=== PATIENT | female | born 1975 | race Hispanic/Latino ===

== ENCOUNTER 2021-03-09 08:01 | Observation (INO) | payer MEDICARE ==
[~2021-03-09] VITALS: Ht 152.4 cm; Wt 86.2 kg
[2021-03-09] VITALS (22 sets, daily range): BP systolic 134–181; BP diastolic 64–82
[2021-03-09 08:53] LABS: BASOPHILS % (AUTO) 1.3 % (0.0-5.0); EOSINOPHILS % (AUTO) 4.3 % (0.0-8.0); LYMPHOCYTES % (AUTO) 14.3 % (21.0-51.0); MEAN CORPUSCULAR HEMOGLOBIN 34.3 pg (27.0-33.0); MEAN CORPUSCULAR HGB CONC 32.4 g/dL (32.0-36.0); MEAN CORPUSCULAR VOLUME 105.9 fL (79-99); MONOCYTES % (AUTO) 10.3 % (3.0-13.0); NEUTROPHILS % (AUTO) 69.5 % (40.0-77.0); PLATELET COUNT (AUTO) 90 K/uL (130-400); RED BLOOD CELL COUNT(AUTO) 2.36 MIL/uL (4.00-5.50); RED CELL DISTRIBUTION WIDTH 14.5 % (11.0-15.5)
[2021-03-09 09:12] LABS: ALBUMIN 3.5 g/dL (3.5-5.0); BILIRUBIN,TOTAL 0.6 mg/dL (0.2-1.0); POTASSIUM 5.7 mmol/L (3.5-5.1); TOTAL PROTEIN, SERUM 8.5 g/dL (6.0-8.3)
[2021-03-09 09:18] LABS: CREATININE 19.3 mg/dL (0.5-1.5)
[2021-03-09 09:23] LABS: INR 1.1 (0.85-1.15); PROTHROMBIN TIME 11.9 SEC (9.6-11.6)
[2021-03-09 09:24] LABS: PARTIAL THROMBOPLASTIN TIME 23.4 SEC (26.3-35.5)
[2021-03-09] MEDS: DiphenhydrAMINE HCL 50 MG/ML VIAL ONE ×2 (09:42→09:50)
[2021-03-09] MEDS ORDERED: DiphenhydrAMINE HCL 50 MG/ML VIAL IM SCH (10:00)
[2021-03-09] MEDS ORDERED: ACETAMINOPHEN 325 MG TAB PO PRN (10:30)
[2021-03-09] MEDS ORDERED: GLUCAGON 1MG KIT 1 MG ML IM PRN (10:30)
[2021-03-09] MEDS ORDERED: DEXTROSE 50%-WATER 50 ML DISP.SYRIN IV PRN (10:30)
[2021-03-09] MEDS ORDERED: ONDANSETRON 4MG INJ IVP PRN (10:30)
[2021-03-09] MEDS ORDERED: CLONIDINE HCL 0.1 MG TABLET PO PRN (10:30)
[2021-03-09] MEDS ORDERED: ACETAMINOPHEN 650 MG SUPPOSITORY RC PRN (10:30)
[2021-03-09] MEDS ORDERED: LACTULOSE 20 GM/30 ML UDCUP PO PRN (10:30)
[2021-03-09] MEDS ORDERED: HYDRALAZINE 20MG/ML VIAL IV PRN (10:30)
[2021-03-09] MEDS ORDERED: ENOXAPARIN SODIUM 30 MG/0.3 ML SQ SCH (10:33)
[2021-03-09] MEDS ORDERED: SERT-438 PO (10:36)
[2021-03-09] MEDS ORDERED: LORA10TA7 PO (10:37)
[2021-03-09] MEDS ORDERED: HYDR-4154 PO (10:38)
[2021-03-09] MEDS ORDERED: AMLO-257 PO (10:43)
[2021-03-09] MEDS: INSULIN HUMULIN R 100 UNIT/ML 3ML SQ SCH ×3 (11:30→21:00)
[2021-03-09 11:41] LABS: TROPONIN I 0.15 ng/mL (0.00-0.06)
[2021-03-09] MEDS: METOCLOPRAMIDE 5 MG TABLET PO SCH ×3 (12:22→22:18)
[2021-03-09 13:39] LABS: ABG HCO3 15.6 mmol/L (21.0-28.0); ABG OXYGEN SATURATION 97.1 % (95.0-99.0); ABG PCO2 31 mmHg (32-45)
[2021-03-09] MEDS ORDERED: HEPARIN 5,000 UNIT VIAL IV ONE (17:00)
[2021-03-09 17:58] LABS: TROPONIN I 0.19 ng/mL (0.00-0.06)
[2021-03-09] MEDS ORDERED: HYDRALAZINE 25MG TABLET PO SCH (21:00)
[2021-03-10] MEDS ORDERED: LORATADINE 10 MG TABLET PO SCH (09:00)
[2021-03-10] MEDS ORDERED: SERTRALINE HCL 50 MG TABLET PO SCH (09:00)
[2021-03-10] MEDS ORDERED: AMLODIPINE 5 MG TAB PO SCH (09:00)
[2021-03-11 07:17] LABS: HEPATITIS Bs ANTIGEN SCREEN P Negative (Negative)
== END 2021-03-09 22:55 | disposition left against medical advice (07) ==
LOC: EDH 08:01 → EDHIP 10:25
PROVIDERS: ADMIT Internal Medicine Critical Care Medicine; ATTEND Internal Medicine Critical Care Medicine
DX: E87.70 Fluid overload, unspecified (principal); Z20.822 Contact with and (suspected) exposure to COVID-19; R18.8 Other ascites; E87.5 Hyperkalemia; I12.0 Hypertensive chronic kidney disease with stage 5 chronic kidney disease or end stage renal disease; E11.22 Type 2 diabetes mellitus with diabetic chronic kidney disease; N18.6 End stage renal disease; D69.6 Thrombocytopenia, unspecified; E46 Unspecified protein-calorie malnutrition; R53.81 Other malaise; R19.7 Diarrhea, unspecified; J90 Pleural effusion, not elsewhere classified; E87.2 Acidosis; A05.9 Bacterial foodborne intoxication, unspecified; D64.9 Anemia, unspecified; R64 Cachexia; Z99.2 Dependence on renal dialysis; Z79.2 Long term (current) use of antibiotics; Z68.37 Body mass index [BMI] 37.0-37.9, adult
CPT/HCPCS: 36415; 36600; 49083; 71045; 80053; 82550; 82803; 82948; 83874; 84484; 85025; 85610; 85730; 86704; 86706; 87040; 87340; 87635; 87804; 90935; 96372; C1729; G0378; J1200; J1644; J1650

== ENCOUNTER 2021-09-02 12:29 | Observation (INO) | payer MEDICARE ==
[2021-09-02] VITALS (14 sets, daily range): BP systolic 121–171; BP diastolic 62–88
[~2021-09-02] VITALS: Ht 170.2 cm; Wt 73.1 kg
[~2021-09-02 12:29] MED LIST: AMLO-257 PO; HYDR-4154 PO; LORA10TA7 PO; SERT-438 PO
[2021-09-02] MEDS ORDERED: ACETAMINOPHEN WITH CODEINE 1 TAB TAB PO ONE (16:30)
[2021-09-02 16:35] LABS: BASOPHILS % (AUTO) 1.3 % (0.0-5.0); EOSINOPHILS % (AUTO) 3.8 % (0.0-8.0); HEMATOCRIT 29.7 % (36-48); LYMPHOCYTES % (AUTO) 14.6 % (21.0-51.0); MEAN CORPUSCULAR HEMOGLOBIN 33.4 pg (27.0-33.0); MEAN CORPUSCULAR HGB CONC 33.7 g/dL (32.0-36.0); MEAN CORPUSCULAR VOLUME 99.3 fL (79-99); MONOCYTES % (AUTO) 9.1 % (3.0-13.0); PLATELET COUNT (AUTO) 89 K/uL (130-400); RED BLOOD CELL COUNT(AUTO) 2.99 MIL/uL (4.00-5.50); RED CELL DISTRIBUTION WIDTH 14.4 % (11.0-15.5); WHITE BLOOD COUNT (AUTO) 4.5 K/uL (4.8-10.8)
[2021-09-02 16:41] LABS: INR 1.12 (0.85-1.15); PROTHROMBIN TIME 12.1 SEC (9.6-11.6)
[2021-09-02 16:42] LABS: PARTIAL THROMBOPLASTIN TIME 32.2 SEC (26.3-35.5)
[2021-09-02 16:48] LABS: ALBUMIN 3.6 g/dL (3.5-5.0); BILIRUBIN,TOTAL 0.5 mg/dL (0.2-1.0); CRP QUANTITATIVE 2.3 mg/L (0.00-9.0); POTASSIUM 5.5 mmol/L (3.5-5.1); TOTAL PROTEIN, SERUM 8.9 g/dL (6.0-8.3)
[2021-09-02 17:04] LABS: CREATININE 17.8 mg/dL (0.5-1.5)
[2021-09-02] MEDS ORDERED: HYDROXYZINE 25 MG TABLET PO ONE (17:30)
[2021-09-02] MEDS ORDERED: CALCIUM GLUC 1GM 1 GM in 0.9%NACL 100ML 100 ML IV ONE (17:30)
[2021-09-02] MEDS ORDERED: INSULIN HUMULIN R 100 UNIT/ML 3ML IV ONE (17:30)
[2021-09-02] MEDS ORDERED: DEXTROSE 50%-WATER 25 GM/50 ML VIAL IV ONE (17:30)
[2021-09-02] MEDS ORDERED: SODIUM BICARB 8.4% 50ML SYRINGE IVP ONE (17:30)
[2021-09-02] MEDS ORDERED: SODIUM BICARB 50MEQ 50ML VIAL 50 ML ONE (17:53)
[2021-09-02] MEDS ORDERED: ALBUTEROL 0.083% 2.5 MG/3 ML INH IH SCH (18:00)
[2021-09-02] MEDS ORDERED: HYDRALAZINE 20MG/ML VIAL IV ONE (18:00)
[2021-09-02] MEDS ORDERED: DEXTROSE 50%-WATER 50 ML DISP.SYRIN IV ONE (18:06)
[2021-09-02] MEDS ORDERED: NITROGLYCERIN 1GM OINT 1 INCH/1GM TD ONE (18:10)
[2021-09-02] MEDS: KAYEXALATE 15GM/60ML PO NR (18:17)
[2021-09-02 20:11] LABS: HEMOGLOBIN A1C 4.4 % (4.0-6.0)
[2021-09-02 20:31] LABS: THYROID STIMULATING HORMONE 7.38 uIU/mL (0.36-3.74)
[2021-09-02 20:32] LABS: CRP QUANTITATIVE < 2.00 mg/L (0.00-9.0)
[2021-09-02] MEDS: HYDRALAZINE 25MG TABLET PO SCH (21:00)
[2021-09-02 22:12] LABS: INFLUENZA TYPE A NEGATIVE FOR TYPE A (NEG); INFLUENZA TYPE B NEGATIVE FOR TYPE B (NEG)
[2021-09-02] MEDS ORDERED: HEPARIN 5,000 UNIT VIAL ONE (22:21)
[2021-09-03] VITALS (13 sets, daily range): BP systolic 141–184; BP diastolic 54–78
[2021-09-03] MEDS: HYDRALAZINE 20MG/ML VIAL IV PRN ×2 (00:12→17:17)
[2021-09-03] MEDS ORDERED: DIPHENHYDRAMINE HCL 25 MG CAPSULE PO ONE ×2 (01:30→21:00)
[2021-09-03 05:44] LABS: BASOPHILS % (AUTO) 1.1 % (0.0-5.0); EOSINOPHILS % (AUTO) 3.1 % (0.0-8.0); HEMATOCRIT 27.6 % (36-48); LYMPHOCYTES % (AUTO) 10.2 % (21.0-51.0); MEAN CORPUSCULAR HEMOGLOBIN 32.7 pg (27.0-33.0); MEAN CORPUSCULAR HGB CONC 33.7 g/dL (32.0-36.0); MEAN CORPUSCULAR VOLUME 97.2 fL (79-99); MONOCYTES % (AUTO) 9.9 % (3.0-13.0); NEUTROPHILS % (AUTO) 75.4 % (40.0-77.0); PLATELET COUNT (AUTO) 76 K/uL (130-400); RED BLOOD CELL COUNT(AUTO) 2.84 MIL/uL (4.00-5.50); RED CELL DISTRIBUTION WIDTH 14.3 % (11.0-15.5); WHITE BLOOD COUNT (AUTO) 3.5 K/uL (4.8-10.8)
[2021-09-03 06:20] LABS: ALBUMIN 3.2 g/dL (3.5-5.0); BILIRUBIN,TOTAL 0.5 mg/dL (0.2-1.0); MAGNESIUM 2.3 mg/dL (1.80-2.40); TOTAL PROTEIN, SERUM 7.7 g/dL (6.0-8.3)
[2021-09-03 06:23] LABS: CREATININE 12.9 mg/dL (0.5-1.5)
[2021-09-03 06:36] LABS: PHOSPHORUS 10.5 mg/dL (2.5-4.9)
[2021-09-03] MEDS ORDERED: EPOETIN ALFA-EPBX (ESRD) 10,000 UNIT/ML VIAL SQ SCH (09:00)
[2021-09-03] MEDS: AMLODIPINE 5 MG TAB PO SCH (09:20)
[2021-09-03] MEDS: CALCIUM AC 667MG CAP PO SCH ×3 (09:20→17:17)
[2021-09-03] MEDS: Vitamin B Complex/Vit C/Folic Acid PO SCH (09:20)
[2021-09-03] MEDS: HYDRALAZINE 25MG TABLET PO SCH ×2 (09:20→21:53)
[2021-09-03] MEDS ORDERED: ONDANSETRON 4MG INJ IVP PRN (09:30)
[2021-09-03] MEDS ORDERED: LIDOCAINE HCL 1% 20 ML VIAL ONE (12:56)
[2021-09-03] MEDS ORDERED: ALBUMIN (HUMAN) 25% 200 ML IV ONE (12:56)
[2021-09-03] MEDS: HEPARIN 5,000 UNIT VIAL IV NR (15:00)
[2021-09-03] MEDS: KAYEXALATE 15GM/60ML PO NR (17:34)
[2021-09-03 18:26] LABS: APPEARANCE BODY FLUID CLEAR (CLEAR); COLOR,BODY FLUID YELLOW (LT YELLOW); SPECIMENTYPE,BODY FLUID ASCITES; TOTAL VOLUME,BODY FLUID 12000 mL
[2021-09-03 18:30] LABS: BODY FLUID RBC 133 /cu. mm.; BODY FLUID WBC 104 /cu. mm.
[2021-09-03] MEDS ORDERED: GABA-529 PO (18:42)
[2021-09-03] MEDS ORDERED: FERR210T PO (18:42)
[2021-09-03] MEDS ORDERED: HYDR-3421 PO (18:42)
[2021-09-03 22:09] LABS: BF LYMPHOCYTE 27 %; BF MESOTHELIAL 55 %
[2021-09-04] VITALS (20 sets, daily range): BP systolic 111–196; BP diastolic 59–90
[2021-09-04] MEDS ORDERED: HYDROCODONE/ACETAMINOPHEN 5/325 MG TAB PO ONE (03:00)
[2021-09-04] MEDS ORDERED: HYDROCODONE/ACETAMINOPHEN 5/325 MG TAB ONE (04:49)
[2021-09-04 07:10] LABS: MEAN CORPUSCULAR HGB CONC 32.8 g/dL (32.0-36.0); MEAN CORPUSCULAR VOLUME 100.7 fL (79-99); PLATELET COUNT (AUTO) 60 K/uL (130-400); RED BLOOD CELL COUNT(AUTO) 2.88 MIL/uL (4.00-5.50); RED CELL DISTRIBUTION WIDTH 14.4 % (11.0-15.5); WHITE BLOOD COUNT (AUTO) 4.3 K/uL (4.8-10.8)
[2021-09-04 07:26] LABS: ALBUMIN 3.1 g/dL (3.5-5.0); ASPARTATE AMINOTRANSFERASE 11 U/L (10-37); BILIRUBIN,TOTAL 0.4 mg/dL (0.2-1.0); CARBON DIOXIDE 23 mmol/L (21-32); CHLORIDE 99 mmol/L (101-111); GLOMERULAR FILTR. RATE CALC 4 mL/min (>60); GLUCOSE,RANDOM 99 mg/dL (70-105); PHOSPHORUS 9.1 mg/dL (2.5-4.9); SODIUM SERUM 136 mmol/L (136-145); UREA NITROGEN, BLOOD 66 mg/dL (7-18)
[2021-09-04 07:28] LABS: ALANINE AMINOTRANSFERASE < 6 U/L (12-78)
[2021-09-04 07:29] LABS: CREATININE 10.9 mg/dL (0.5-1.5)
[2021-09-04] MEDS: CALCIUM AC 667MG CAP PO SCH ×3 (08:00→19:32)
[2021-09-04 08:15] LABS: HEPATITIS Bs ANTIGEN SCREEN P Negative (Negative)
[2021-09-04] MEDS: HYDRALAZINE 25MG TABLET PO SCH ×2 (09:00→20:10)
[2021-09-04] MEDS: Vitamin B Complex/Vit C/Folic Acid PO SCH (09:00)
[2021-09-04] MEDS: AMLODIPINE 5 MG TAB PO SCH (09:00)
[2021-09-04] MEDS ORDERED: LIDOCAINE HCL-MPF 1% 2ML VIAL ONE (10:52)
[2021-09-04] MEDS: HEPARIN 5,000 UNIT VIAL IV NR (12:19)
[2021-09-04] MEDS ORDERED: DIPHENHYDRAMINE HCL 25 MG CAPSULE PO SCH ×2 (13:08→14:45)
[2021-09-04] MEDS ORDERED: ACETAMINOPHEN WITH CODEINE 1 TAB TAB PO PRN (16:00)
[2021-09-04] MEDS ORDERED: ACET1TAB25 PO ×2 (16:03→16:22)
[2021-09-04] MEDS ORDERED: DOXY100T2 PO (16:03)
== END 2021-09-04 21:00 | disposition home or self-care (01) ==
LOC: EDH 12:29 → EDHIP 18:29 → INTOOBSV 18:29 → 4DH 09-03 14:15
PROVIDERS: ADMIT Internal Medicine; ATTEND Internal Medicine
DX: J96.01 Acute respiratory failure with hypoxia (principal); Z20.822 Contact with and (suspected) exposure to COVID-19; I16.0 Hypertensive urgency; I12.0 Hypertensive chronic kidney disease with stage 5 chronic kidney disease or end stage renal disease; N18.6 End stage renal disease; D63.1 Anemia in chronic kidney disease; E87.2 Acidosis; E87.70 Fluid overload, unspecified; E87.5 Hyperkalemia; I24.9 Acute ischemic heart disease, unspecified; K74.69 Other cirrhosis of liver; L02.511 Cutaneous abscess of right hand; R77.8 Other specified abnormalities of plasma proteins; J81.1 Chronic pulmonary edema; Z99.2 Dependence on renal dialysis; Z91.19 Patient's noncompliance with other medical treatment and regimen; Z90.49 Acquired absence of other specified parts of digestive tract; Z91.15 Patient's noncompliance with renal dialysis; Z94.0 Kidney transplant status; Z98.84 Bariatric surgery status; Z79.899 Other long term (current) drug therapy; Z98.890 Other specified postprocedural states; Z98.891 History of uterine scar from previous surgery
CPT/HCPCS: 26011; 36415 ×3; 49083; 71045; 73120; 73218; 76705; 80053 ×3; 82948 ×6; 83036; 83735; 84100 ×2; 84145; 84443; 84484 ×3; 85025 ×2; 85027; 85610; 85651; 85730; 86140 ×2; 86704; 86706; 87040 ×2; 87071; 87205; 87340; 87635; 87804 ×2; 89051; 93005; 93970; 94640; 96365; 96375; 96376; 99285; C1729; C9803; G0378 ×8; J0360 ×3; J0610; J1644 ×4; J3490 ×2; J7070 ×2; P9046; Q0163 ×3; 90935

== ENCOUNTER 2021-09-12 15:50 | Emergency (ER) | payer MEDICARE ==
[~2021-09-12] VITALS: Ht 170.2 cm; Wt 93.4 kg
[~2021-09-12 15:50] MED LIST changes: +ACET1TAB25 PO; +DOXY100T2 PO; +FERR210T PO; +GABA-529 PO; +HYDR-3421 PO; -LORA10TA7 PO; -SERT-438 PO
[2021-09-12 16:29] LABS: BASOPHILS % (AUTO) 0.9 % (0.0-5.0); EOSINOPHILS % (AUTO) 3.8 % (0.0-8.0); HEMATOCRIT 29.1 % (36-48); LYMPHOCYTES % (AUTO) 12.8 % (21.0-51.0); MEAN CORPUSCULAR HGB CONC 32.6 g/dL (32.0-36.0); MONOCYTES % (AUTO) 12.5 % (3.0-13.0); NEUTROPHILS % (AUTO) 69.8 % (40.0-77.0); PLATELET COUNT (AUTO) 109 K/uL (130-400); RED BLOOD CELL COUNT(AUTO) 2.97 MIL/uL (4.00-5.50); RED CELL DISTRIBUTION WIDTH 13.8 % (11.0-15.5); WHITE BLOOD COUNT (AUTO) 4.5 K/uL (4.8-10.8)
[2021-09-12 16:52] LABS: B-TYPE NATRIURETIC PEPTIDE 1850 pg/mL (0-100)
[2021-09-12 16:58] LABS: ALBUMIN 3.1 g/dL (3.5-5.0); BILIRUBIN,TOTAL 0.5 mg/dL (0.2-1.0); POTASSIUM 5.1 mmol/L (3.5-5.1); TOTAL PROTEIN, SERUM 7.9 g/dL (6.0-8.3)
[2021-09-12 17:01] LABS: CREATININE 14.8 mg/dL (0.5-1.5)
[2021-09-12 18:23] VITALS: BP 172/73
== END 2021-09-12 18:30 | disposition home or self-care (01) ==
LOC: EDH 15:50
DX: I12.0 Hypertensive chronic kidney disease with stage 5 chronic kidney disease or end stage renal disease (principal); E11.22 Type 2 diabetes mellitus with diabetic chronic kidney disease; N18.6 End stage renal disease; Z99.2 Dependence on renal dialysis; Z90.49 Acquired absence of other specified parts of digestive tract; Z98.890 Other specified postprocedural states; Z88.1 Allergy status to other antibiotic agents; Z88.8 Allergy status to other drugs, medicaments and biological substances; Z79.899 Other long term (current) drug therapy; Z20.822 Contact with and (suspected) exposure to COVID-19
CPT/HCPCS: 36415; 71045; 72170; 80053; 83605; 83880; 84145; 84484; 85025; 87635; 93005; 99285; C9803

== ENCOUNTER 2022-08-09 11:20 | Observation (INO) | payer MEDICARE ==
[2022-08-09] VITALS (14 sets, daily range): BP systolic 140–185; BP diastolic 62–93
[~2022-08-09] VITALS: Ht 170.2 cm; Wt 80.2 kg
[~2022-08-09 11:20] MED LIST changes: +ACET-2079 PO; -ACET1TAB25 PO
[2022-08-09 12:54] LABS: BASOPHILS % (AUTO) 0.8 % (0.0-5.0); EOSINOPHILS % (AUTO) 1.6 % (0.0-8.0); HEMATOCRIT 30.6 % (36-48); MEAN CORPUSCULAR HEMOGLOBIN 32.4 pg (27.0-33.0); MEAN CORPUSCULAR HGB CONC 32.4 g/dL (32.0-36.0); NEUTROPHILS % (AUTO) 75.1 % (40.0-77.0); PLATELET COUNT (AUTO) 86 K/uL (130-400); RED BLOOD CELL COUNT(AUTO) 3.06 MIL/uL (4.00-5.50); RED CELL DISTRIBUTION WIDTH 14.2 % (11.0-15.5); WHITE BLOOD COUNT (AUTO) 3.8 K/uL (4.8-10.8)
[2022-08-09] MEDS ORDERED: ACETAMINOPHEN 325 MG TAB PO PRN (13:00)
[2022-08-09] MEDS ORDERED: ONDANSETRON 4MG INJ IVP PRN (13:00)
[2022-08-09 13:14] LABS: POTASSIUM 5.9 mmol/L (3.5-5.1); TOTAL PROTEIN, SERUM 9.6 g/dL (6.0-8.3)
[2022-08-09] MEDS ORDERED: FLUO20CA30 PO (13:26)
[2022-08-09] MEDS ORDERED: GABA-529 PO (13:26)
[2022-08-09] MEDS ORDERED: CLON0.5T23 PO (13:26)
[2022-08-09] MEDS ORDERED: SEVE0.8P3 PO (13:26)
[2022-08-09] MEDS ORDERED: NON-FORMULARY MEDICATION 1 EACH (Clonazepam 0.5 MG) PO PRN (13:30)
[2022-08-09] MEDS ORDERED: COLC0.6C3 PO ×2 (14:00)
[2022-08-09] MEDS ORDERED: CLONAZEPAM 0.5 MG TABLET PO PRN (14:00)
[2022-08-09] MEDS: HEPARIN 5,000 UNIT VIAL SQ SCH (14:01)
[2022-08-09] MEDS ORDERED: ALBUMIN (HUMAN) 25% 200 ML IV ONE (15:36)
[2022-08-09] MEDS ORDERED: LIDOCAINE HCL 1% 20 ML VIAL ONE (15:36)
[2022-08-09] MEDS ORDERED: SEVELAMER CARBONATE 2400 MG PO SCH (17:00)
[2022-08-09] MEDS: SEVELAMER HCL 800 MG TABLET PO SCH (17:00)
[2022-08-09 19:54] LABS: SPECIMENTYPE,BODY FLUID ASCITES
[2022-08-09 19:55] LABS: APPEARANCE BODY FLUID CLOUDY (CLEAR)
[2022-08-09 19:56] LABS: BODY FLUID WBC 33 /cu. mm.; COLOR,BODY FLUID ORANGE (LT YELLOW); TOTAL VOLUME,BODY FLUID 8500 mL
[2022-08-09 19:57] LABS: BODY FLUID RBC 7350 /cu. mm.
[2022-08-09] MEDS ORDERED: HYDRALAZINE HCL 25 MG PO SCH (21:00)
[2022-08-09 21:08] LABS: BF LYMPHOCYTE 32 %; BF MONOCYTE 5 %; BF OTHER CELLS 1
[2022-08-09] MEDS: GABAPENTIN 100 MG CAPSULE PO SCH (23:35)
[2022-08-09] MEDS: HYDRALAZINE 25MG TABLET PO SCH (23:35)
[2022-08-10] VITALS (19 sets, daily range): BP systolic 108–194; BP diastolic 59–88
[2022-08-10] MEDS ORDERED: SEVE800 PO (00:41)
[2022-08-10] MEDS ORDERED: DIPH25CA53 PO (00:46)
[2022-08-10] MEDS: HEPARIN 5,000 UNIT VIAL SQ SCH ×2 (02:38→16:02)
[2022-08-10 04:09] LABS: HEPATITIS B SURFACE ANTIGEN Non-Reactive (Nonreactive)
[2022-08-10 06:00] LABS: BASOPHILS % (AUTO) 0.7 % (0.0-5.0); EOSINOPHILS % (AUTO) 2.7 % (0.0-8.0); HEMATOCRIT 27.6 % (36-48); LYMPHOCYTES % (AUTO) 11.1 % (21.0-51.0); MEAN CORPUSCULAR HGB CONC 31.2 g/dL (32.0-36.0); MEAN CORPUSCULAR VOLUME 102.6 fL (79-99); MONOCYTES % (AUTO) 10.1 % (3.0-13.0); NEUTROPHILS % (AUTO) 75.4 % (40.0-77.0); PLATELET COUNT (AUTO) 65 K/uL (130-400); RED BLOOD CELL COUNT(AUTO) 2.69 MIL/uL (4.00-5.50); RED CELL DISTRIBUTION WIDTH 14.1 % (11.0-15.5)
[2022-08-10 06:12] LABS: MAGNESIUM 2.4 mg/dL (1.80-2.40); POTASSIUM 4.8 mmol/L (3.5-5.1)
[2022-08-10 06:17] LABS: CREATININE 9.6 mg/dL (0.5-1.5)
[2022-08-10 06:55] LABS: HEMOGLOBIN A1C 5.4 % (4.0-6.0)
[2022-08-10 07:36] LABS: BASOPHILS % (MANUAL) 2 % (0-2); EOSINOPHILS % (MANUAL) 3 % (1-6); LYMPHOCYTES % (MANUAL) 11 % (22-44); MONOCYTES % (MANUAL) 3 % (2-9); SEGMENTED NEUTROPHILS % 81 % (40-70)
[2022-08-10 07:37] LABS: MAN.DIFF COMMENT-IMPRESSION MANUAL DIFFERENTIAL; PLATELET MORPHOLOGY COMMENT MARKED DECREASE
[2022-08-10] MEDS: SEVELAMER HCL 800 MG TABLET PO SCH ×3 (08:00→17:21)
[2022-08-10] MEDS ORDERED: FLUOXETINE HCL 20 MG CAPSULE PO SCH (09:00)
[2022-08-10] MEDS: GABAPENTIN 100 MG CAPSULE PO SCH (09:12)
[2022-08-10] MEDS: HYDRALAZINE 25MG TABLET PO SCH (09:12)
[2022-08-10] MEDS ORDERED: EPOETIN ALFA-EPBX (NON-ESRD) 10,000 UNIT/ML VIAL SQ SCH (14:00)
[2022-08-10] MEDS ORDERED: HEPARIN 5,000 UNIT VIAL IV SCH (15:00)
[2022-08-12] MEDS ORDERED: EPOETIN ALFA-EPBX (NON-ESRD) 10,000 UNIT/ML VIAL SQ SCH (09:00)
[2022-08-14] MEDS ORDERED: EPOETIN ALFA-EPBX (NON-ESRD) 10,000 UNIT/ML VIAL SQ SCH (09:00)
== END 2022-08-10 22:40 | disposition left against medical advice (07) ==
LOC: EDH 11:20 → EDHIP 12:50 → 3DH 22:44
PROVIDERS: ADMIT Internal Medicine Infectious Disease; ATTEND Internal Medicine Infectious Disease
DX: J81.0 Acute pulmonary edema (principal); I16.1 Hypertensive emergency; R18.8 Other ascites; E87.5 Hyperkalemia; I12.0 Hypertensive chronic kidney disease with stage 5 chronic kidney disease or end stage renal disease; N18.6 End stage renal disease; E11.22 Type 2 diabetes mellitus with diabetic chronic kidney disease; D63.1 Anemia in chronic kidney disease; D72.819 Decreased white blood cell count, unspecified; E87.1 Hypo-osmolality and hyponatremia; E87.70 Fluid overload, unspecified; I24.9 Acute ischemic heart disease, unspecified; K74.60 Unspecified cirrhosis of liver; E83.39 Other disorders of phosphorus metabolism; Z90.49 Acquired absence of other specified parts of digestive tract; Z91.15 Patient's noncompliance with renal dialysis; Z91.199 Patient's noncompliance with other medical treatment and regimen due to unspecified reason; Z94.0 Kidney transplant status; Z99.2 Dependence on renal dialysis; Z79.899 Other long term (current) drug therapy; Z98.890 Other specified postprocedural states; Z98.891 History of uterine scar from previous surgery
CPT/HCPCS: 96374; 96372 ×2; 99285; 84484; 80053; 85025 ×2; 89051; 87071; 87205; 86706; 87340; 86704; 36415 ×2; 71045; 49083; 93005; 83036; 83735; 80048; G0378 ×28; J1644 ×3; P9046; C1729; Q5106; 90935; 96365